=== PATIENT | female | born 1995 | race Hispanic/Latino ===

== ENCOUNTER 2017-09-02 21:04 | Emergency (ER) | payer OTHER ==
[2017-09-02 21:06] VITALS: BMI 37.7
[2017-09-02 21:14] VITALS: O2SAT 100
[2017-09-02] MEDS ORDERED: Sodium Chloride 0.9% 1,000 ML IV STA (21:26)
--- NOTE | 2017-09-02 21:37 | ED PDOC ---
Arrival/HPI - General Chief Complaint: Flu-like Symptoms Time Seen by Provider: 09/02/17 21:26 Historian: Patient - History of Present Illness Narrative History of Present Illness (Text): 09/02/17 21:36 A 22 year old female, who denies any past medical history, presents to the emergency department complaining of shortness of breath, fever, chills and body aches for the past two days. Patient reports fever two days ago, currently resolved. Reports she saw Dr. Carrington, who prescribed Ibuprofen and went to urgent care two days ago, negative for flu. Reports to taking Motrin. Patient denies any sick contacts or recent travels. Denies any history of asthma. Reports diarrhea but denies any other complaints at this time. Time/Duration: Other (2 days) Symptom Onset: Sudden Symptom Course: Unchanged Activities at Onset: Rest Context: Home Past Medical History - Provider Review Nursing Documentation Reviewed: Yes - Infectious Disease Hx of Infectious Diseases: None - Cardiac Hx Pacemaker: No - Neurological Hx Paralysis: No Hx Seizures: No - HEENT Hx Difficulty Chewing: No - Hematological/Oncological Hx Blood Transfusions: No Hx Blood Transfusion Reaction: No - Musculoskeletal/Rheumatological Hx Musculoskeletal Disorders: No - Psychiatric Hx Emotional Abuse: No Hx Physical Abuse: No Hx Substance Use: No - Anesthesia Hx Anesthesia: No Hx Anesthesia Reactions: No - Suicidal Assessment Feels Threatened In Home Enviroment: No Family/Social History - Physician Review Nursing Documentation Reviewed: Yes Family/Social History: No Known Family HX Smoking Status: Never Smoked Hx Alcohol Use: No Hx Substance Use: No Allergies/Home Meds Allergies/Adverse Reactions: Allergies No Known Allergies Allergy (Verified 09/02/17 21:12) Review of Systems - Physician Review All systems were reviewed & negative as marked: Yes - Review of Systems Gastrointestinal: absent: Vomiting Neurological: absent: Headache Physical Exam - Physical Exam Narrative Physical Exam (Text): 09/02/17 21:35 Constitutional: No acute distress. Head: Normocephalic. Atraumatic. Eyes: PERRL. ENT: Moist mucous membranes. Neck: Supple. Cardiovascular: Tachycardic rate. Chest: No tenderness. Respiratory: Clear to auscultation bilaterally. GI: Soft. Nontender. Nondistended. Back: No CVA tenderness. Musculoskeletal: No tenderness or swelling of extremities. Skin: No rash. Neurologic: Alert, no focal deficit. Vital Signs Reviewed: Yes Vital Signs Temp Pulse Resp BP Pulse Ox 09/02/17 22:27 98.9 F 90 18 128/73 100 09/02/17 21:12 98.6 F 108 H 16 127/86 100 Medical Decision Making ED Course and Treatment: 09/02/17 21:34 Impression: A 22 year old female with shortness of breath, chills, fever, body aches. Plan: -- chest xray -- labs -- Urinalysis -- IV fluids, Tamiflu, Toradol -- Reassess and disposition Progress Notes: CXR no consolidation. UA shows elevated spec gravity and ketones. Patient with no UTI symptoms. HR normalized. Patient hydrated, discharged home, continue ibuprofen, tamiflu, urine culture sent, return to ED for worsening pain, dyspnea, vomiting, or any other problem. - Lab Interpretations Lab Results: Lab Results 09/02/17 21:37: Urine Color Yellow, Urine Appearance Sl cloudy, Urine pH 6.0, Ur Specific [place] >= 1.030, Urine Protein 100 H, Urine Glucose (UA) Negative, Urine Ketones Trace H, Urine Blood Trace-intact H, Urine Nitrate Negative, Urine Bilirubin Small H, Urine Urobilinogen 0.2, Ur Leukocyte Esterase Moderate H, Urine RBC 1 - 3, Urine WBC 5 - 10, Ur Epithelial Cells 6 - 8, Amorphous Sediment Few, Urine Bacteria Few, Urine HCG, Qual Negative I have reviewed the lab results: Yes - RAD Interpretation Radiology Orders: 09/02/17 21:27 CHEST PORTABLE [RAD] Stat - Medication Orders Current Medication Orders: Discontinued Medications Sodium Chloride (Sodium Chloride 0.9%) 1,000 mls @ 999 mls/hr IV .Q1H1M STA Stop: 09/02/17 22:26 Last Admin: 09/02/17 21:47 Dose: 999 mls/hr eMAR Start Stop Document 09/02/17 21:47 AD (Rec: 09/02/17 21:47 AD [id number]) Intravenous Solution Start Date 09/02/17 Start Time 21:47 Ketorolac Tromethamine (Toradol) 30 mg IVP STAT STA Stop: 09/02/17 21:27 Last Admin: 09/02/17 21:47 Dose: 30 mg MAR Pain Assessment Document 09/02/17 21:47 AD (Rec: 09/02/17 21:47 AD [id number]) Pain Reassessment Is this a pain reassessment? No Description Intensity of Pain at present 7 IVP Administration Document 09/02/17 21:47 AD (Rec: 09/02/17 21:47 AD [id number]) Charges for Administration # of IVP Administrations 1 Oseltamivir Phosphate (Tamiflu Cap) 75 mg PO STAT STA PRN Reason: Protocol Stop: 09/02/17 21:27 Last Admin: 09/02/17 21:47 Dose: 75 mg - Scribe Statement The provider has reviewed the documentation as recorded by the [place] Provider Scribe Attestation: All medical record entries made by the [place] were at my direction and personally dictated by me. I have reviewed the chart and agree that the record accurately reflects my personal performance of the history, physical exam, medical decision making, and the department course for this patient. I have also personally directed, reviewed, and agree with the discharge instructions and disposition. Disposition/Present on Arrival - Present on Arrival Any Indicators Present on Arrival: No History of DVT/PE: No History of Uncontrolled Diabetes: No Urinary Catheter: No History of Decub. Ulcer: No History Surgical Site Infection Following: None - Disposition Have Diagnosis and Disposition been Completed?: Yes Diagnosis: Dehydration Disposition: HOME/ ROUTINE Disposition Time: 22:39 Patient Plan: Discharge Patient Problems: Current Active Problems Problem Status Onset Dehydration Acute Condition: STABLE Discharge Instructions (ExitCare): Dehydration (ED) Prescriptions: Oseltamivir Phosphate [Tamiflu] 75 mg PO BID #9 capsule Referrals: Jorge Luis Almanzar MD [Primary Care Provider] - Follow up with primary Forms: [employer] (Bel[place]ian)
[2017-09-02 21:53] LABS: URINE BILIRUBIN SMALL (NEGATIVE); URINE BLOOD TRACE-INTACT (NEGATIVE); URINE GLUCOSE (UA) NEGATIVE (NEGATIVE); URINE LEUKOCYTE ESTERASE MODERATE Leu/uL (NEGATIVE); URINE NITRATE NEGATIVE (NEGATIVE); URINE PROTEIN 100 mg/dL (<30 mg/dL); URINE UROBILINOGEN 0.2 E.U./dL (<1 E.U./dL)
[2017-09-02 22:19] LABS: URINE APPEARANCE SL CLOUDY (CLEAR); URINE COLOR YELLOW (YELLOW)
[2017-09-02 22:21] LABS: URINE AMORPHOUS SEDIMENT FEW; URINE BACTERIA FEW (NEG)
[2017-09-02 22:22] LABS: HCG,QUALITATIVE URINE NEGATIVE (NEGATIVE)
[2017-09-02 22:31] VITALS: BP 128/73; PULSE 90; RESP 18; TEMP 98.9
--- NOTE | 2017-09-03 08:29 | RAD ---
HISTORY: r/o PNA COMPARISON: No prior. FINDINGS: LUNGS: No active pulmonary disease. PLEURA: No significant pleural effusion identified, no pneumothorax apparent. CARDIOVASCULAR: Normal. OSSEOUS STRUCTURES: No significant abnormalities. VISUALIZED UPPER ABDOMEN: Normal. OTHER FINDINGS: None. IMPRESSION: No active disease.
== END 2017-09-02 23:28 | disposition home or self-care (01) ==
LOC: ED 21:04
DX: E86.0 Dehydration (principal)
CPT/HCPCS: 71045; 81001; 84703; 96374; 96375; 99284; J1885; J2405; J7040

== ENCOUNTER 2017-09-19 13:42 | Emergency (ER) | payer OTHER ==
[2017-09-19 14:41] VITALS: BMI 35.4
[2017-09-19 16:13] LABS: INFLUENZA A B NEGATIVE FOR FLU A/B (NEGATIVE)
--- NOTE | 2017-09-19 16:48 | ED PDOC ---
Arrival/HPI - General Chief Complaint: Cough, Cold, Congestion Time Seen by Provider: 09/19/17 15:10 Historian: Patient - History of Present Illness Narrative History of Present Illness (Text): 09/19/17 16:40 22yo female with no PMhx who present with complaint of cough, sore throat, fever x 3days. Patient states she saw her PMD and was given Zpack for lower respiratory infection. States the sore throat started yesterday. She have not take her Zpack yet. She denies dysphagia, chest pain, SOB, diaphoresis, sick contact, travel, any other complaint. Past Medical History - Provider Review Nursing Documentation Reviewed: Yes - Infectious Disease Hx of Infectious Diseases: None - Cardiac Hx Pacemaker: No - Neurological Hx Paralysis: No Hx Seizures: No - HEENT Hx Difficulty Chewing: No - Hematological/Oncological Hx Blood Transfusions: No Hx Blood Transfusion Reaction: No - Musculoskeletal/Rheumatological Hx Musculoskeletal Disorders: No - Psychiatric Hx Emotional Abuse: No Hx Physical Abuse: No Hx Substance Use: No - Anesthesia Hx Anesthesia: No Hx Anesthesia Reactions: No - Suicidal Assessment Feels Threatened In Home Enviroment: No Family/Social History - Physician Review Nursing Documentation Reviewed: Yes Family/Social History: Unknown Family HX Smoking Status: Never Smoked Hx Alcohol Use: No Hx Substance Use: No Allergies/Home Meds Allergies/Adverse Reactions: Allergies No Known Allergies Allergy (Verified 09/19/17 14:41) Review of Systems - Physician Review All systems were reviewed & negative as marked: Yes - Review of Systems Constitutional: Normal Eyes: Normal ENT: Sore Throat Respiratory: Cough. absent: SOB, Sputum, Wheezing Cardiovascular: Normal Gastrointestinal: Normal Genitourinary Female: Normal Musculoskeletal: Normal Skin: Normal Neurological: Normal Endocrine: Normal Hemo/Lymphatic: Normal Psychiatric: Normal Physical Exam Vital Signs Reviewed: Yes Vital Signs Temp Pulse Resp BP Pulse Ox 09/19/17 16:00 98 F 80 18 131/80 98 09/19/17 14:37 98.9 F 82 16 138/84 100 Temperature: Afebrile Blood Pressure: Normal Pulse: Regular Respiratory Rate: Normal Appearance: Positive for: Well-Appearing, Non-Toxic, Comfortable Pain Distress: None Mental Status: Positive for: Alert and Oriented X 3 - Systems Exam Head: Present: Atraumatic, Normocephalic Pupils: Present: PERRL Extroacular Muscles: Present: EOMI Conjunctiva: Present: Normal Mouth: Present: Moist Mucous Membranes Pharnyx: Present: Normal. No: ERYTHEMA, EXUDATE, TONSILS ENLARGED, Peritonsilar Swelling, Uvular Deviation, Muffled/Hoarse Voice, Strider Neck: Present: Normal Range of Motion Respiratory/Chest: Present: Clear to Auscultation, Good Air Exchange. No: Respiratory Distress, Accessory Muscle Use Cardiovascular: Present: Regular Rate and Rhythm, Normal S1, S2. No: Murmurs Abdomen: Present: Normal Bowel Sounds. No: Tenderness, Distention, Peritoneal Signs Back: Present: Normal Inspection Upper Extremity: Present: Normal Inspection. No: Cyanosis, Edema Lower Extremity: Present: Normal Inspection. No: Edema Neurological: Present: GCS=15, CN II-XII Intact, Speech Normal Skin: Present: Warm, Dry, Normal Color. No: Rashes Psychiatric: Present: Alert, Oriented x 3, Normal Insight, Normal Concentration Medical Decision Making ED Course and Treatment: 09/20/17 00:26 Rapid strep/flu was negative. Pt was hemodynamically stable in ED. She was already given Zpack by her PMD. She was DC home and instructed to take the medication as was directed. - Lab Interpretations Lab Results: Lab Results 09/19/17 15:17: Influenza Typ A,B (EIA) Negative for flu a/b, Grp A Beta Strep Ag Negative - Medication Orders Current Medication Orders: Discontinued Medications Lidocaine HCl (Lidocaine 2% Viscous) 15 ml PO ONCE STA Stop: 09/19/17 16:50 Last Admin: 09/19/17 17:08 Dose: 15 ml Disposition/Present on Arrival - Present on Arrival Any Indicators Present on Arrival: No History of DVT/PE: No History of Uncontrolled Diabetes: No Urinary Catheter: No History of Decub. Ulcer: No History Surgical Site Infection Following: None - Disposition Have Diagnosis and Disposition been Completed?: Yes Diagnosis: Sore throat, URI, acute Disposition: HOME/ ROUTINE Disposition Time: 16:50 Patient Plan: Discharge Condition: STABLE Discharge Instructions (ExitCare): Sore Throat, Adult (DC), Viral Upper Respiratory Infection, Adult (DC) Additional Instructions: Follow up with your Doctor Return to Ed for any new or worsening symptoms Referrals: PCP,NO [Primary Care Provider] - Follow up with primary [facility] [Outside] - Follow up with primary Forms: [employer] ([place]an)
[2017-09-19 17:13] VITALS: BP 131/80; PULSE 80; RESP 18; TEMP 98; O2SAT 98
== END 2017-09-19 17:16 | disposition home or self-care (01) ==
LOC: ED 13:42
DX: J02.9 Acute pharyngitis, unspecified (principal)

== ENCOUNTER 2018-03-20 09:58 | Emergency (ER) | payer OTHER ==
[2018-03-20 09:58] VITALS: BMI 35.4
--- NOTE | 2018-03-20 10:04 | ED PDOC ---
Arrival/HPI - General Time Seen by Provider: 03/20/18 10:03 Historian: Patient - History of Present Illness Narrative History of Present Illness (Text): 03/20/18 10:04 23 year old female, no significant pmh, nkda, complaining of rt. sided back pain x 2 days with no fall or trauma. Aching pain, aggravated by movement, non- radiating, no fever or chills, no nausea or vomiting, no abdominal pain, not associated with eating, admits working in [employer] and standing long hours, no urinary symptoms, no flank pain, no other medical or psychological complaints. Past Medical History - Provider Review Nursing Documentation Reviewed: Yes - Infectious Disease Hx of Infectious Diseases: None - Cardiac Hx Pacemaker: No - Neurological Hx Paralysis: No Hx Seizures: No - HEENT Hx Difficulty Chewing: No - Hematological/Oncological Hx Blood Transfusions: No Hx Blood Transfusion Reaction: No - Musculoskeletal/Rheumatological Hx Musculoskeletal Disorders: No - Psychiatric Hx Emotional Abuse: No Hx Physical Abuse: No Hx Substance Use: No - Anesthesia Hx Anesthesia: No Hx Anesthesia Reactions: No - Suicidal Assessment Feels Threatened In Home Enviroment: No Family/Social History - Physician Review Nursing Documentation Reviewed: Yes Family/Social History: Unknown Family HX Smoking Status: Never Smoked Hx Alcohol Use: No Hx Substance Use: No Allergies/Home Meds Allergies/Adverse Reactions: Allergies No Known Allergies Allergy (Verified 03/20/18 10:08) Home Medications: Home Meds Medication Instructions Recorded Confirmed Norethindrone-E.estradiol-Iron [Lo 1 tab PO DAILY 03/20/18 03/20/18 Loestrin Fe 1-10 Tablet] Review of Systems - Review of Systems Constitutional: absent: Fatigue Eyes: absent: Vision Changes ENT: absent: Hearing Changes Respiratory: absent: SOB, Cough Cardiovascular: absent: Chest Pain Gastrointestinal: absent: Abdominal Pain, Nausea, Vomiting Musculoskeletal: Back Pain. absent: Arthralgias Skin: absent: Rash, Pruritis, Skin Lesions Neurological: absent: Headache, Dizziness Psychiatric: absent: Anxiety, Depression, Suicidal Ideation Physical Exam Vital Signs Reviewed: Yes Vital Signs Temp Pulse Resp BP Pulse Ox 03/20/18 10:09 98.6 F 80 16 144/88 99 Temperature: Afebrile Blood Pressure: Normal Pulse: Regular Respiratory Rate: Normal Appearance: Positive for: Well-Appearing, Non-Toxic, Comfortable Pain Distress: Moderate Mental Status: Positive for: Alert and Oriented X 3 - Systems Exam Head: Present: Atraumatic, Normocephalic Pupils: Present: PERRL Extroacular Muscles: Present: EOMI Conjunctiva: Present: Normal Mouth: Present: Moist Mucous Membranes Neck: Present: Normal Range of Motion Respiratory/Chest: Present: Clear to Auscultation, Good Air Exchange. No: Respiratory Distress, Accessory Muscle Use Cardiovascular: Present: Regular Rate and Rhythm, Normal S1, S2. No: Murmurs Abdomen: No: Tenderness, Distention, Peritoneal Signs Back: Present: Normal Inspection, Other (Thoracic spine: +ttp on the rt. paraspinal muscle region, pain is 100 % reproducible by rt. lateral movement, no saddling gait, no midline tenderness or setp off from cervical to LS spine, motor 5/5. ). No: CVA Tenderness, Midline Tenderness, Pain with Leg Raise, Decubitus Ulcer Upper Extremity: Present: Normal Inspection. No: Cyanosis, Edema Lower Extremity: Present: Normal Inspection. No: Edema Neurological: Present: GCS=15, CN II-XII Intact, Speech Normal, Motor Func Grossly Intact, Gait Normal, Memory Normal Skin: Present: Warm, Dry, Normal Color. No: Rashes Psychiatric: Present: Alert, Oriented x 3, Normal Insight, Normal Concentration Medical Decision Making ED Course and Treatment: 03/20/18 10:28 Differential: muscular strain vs. UTI vs. -Toradol IM -Urinalysis -Observe and reassess 03/20/18 11:07 -Urine hcg is negative -Urinalysis show +yeast (diflucan po ordered), +wbc and +leukocyte esterase -Pt. feels much better, moving around with much less pain, request to be discharged home. -All labs discussed with the patient and she's awared of follow up with her own pmd. -Discharge home with naproxen, flexeril, keflex, follow up with your own pmd within 2 days, return to the ER for any new or worsening signs or symptoms. - Lab Interpretations Lab Results: Lab Results 03/20/18 10:25: Urine Color Yellow, Urine Appearance Clear, Urine pH 6.0, Ur Specific [place] >= 1.030, Urine Protein 30 H, Urine Glucose (UA) Negative, Urine Ketones Trace H, Urine Blood Negative, Urine Nitrate Negative, Urine Bilirubin Negative, Urine Urobilinogen 0.2, Ur Leukocyte Esterase Trace H, Urine RBC 0 - 2, Urine WBC 5 - 10, Ur Epithelial Cells 4 - 5, Urine Bacteria Many, Urine Other Uyeast I have reviewed the lab results: Yes - Medication Orders Current Medication Orders: Discontinued Medications Ketorolac Tromethamine (Toradol) 60 mg IM STAT STA Stop: 03/20/18 10:24 Last Admin: 03/20/18 10:33 Dose: 60 mg MAR Pain Assessment Document 03/20/18 10:33 GMI (Rec: 03/20/18 10:33 GMI [id number]) Pain Reassessment Is this a pain reassessment? Yes Sleep Is patient sleeping during reassessment? 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 Disposition/Present on Arrival - Present on Arrival Any Indicators Present on Arrival: No History of DVT/PE: No History of Uncontrolled Diabetes: No Urinary Catheter: No History of Decub. Ulcer: No History Surgical Site Infection Following: None - Disposition Have Diagnosis and Disposition been Completed?: Yes Diagnosis: UTI (urinary tract infection), Myalgia Disposition: HOME/ ROUTINE Disposition Time: 11:09 Patient Plan: Discharge Patient Problems: Current Active Problems Problem Status Onset Myalgia Acute UTI (urinary tract infection) Acute Condition: IMPROVED Additional Instructions: -Discharge home with naproxen, flexeril, keflex, follow up with your own pmd within 2 days, return to the ER for any new or worsening signs or symptoms. Prescriptions: Cephalexin [Keflex] 500 mg PO TID #21 capsule Cyclobenzaprine [Cyclobenzaprine HCl] 10 mg PO TID PRN #21 tab PRN Reason: Other Naproxen 500 mg PO BID PRN #20 tablet PRN Reason: Other Referrals: [facility] [Outside] - Follow up with primary Forms: WORK NOTE
[2018-03-20 10:11] VITALS: O2SAT 99
[2018-03-20 10:48] LABS: URINE APPEARANCE CLEAR (CLEAR); URINE BILIRUBIN NEGATIVE (NEGATIVE); URINE BLOOD NEGATIVE (NEGATIVE); URINE COLOR YELLOW (YELLOW); URINE GLUCOSE (UA) NEGATIVE (NEGATIVE); URINE LEUKOCYTE ESTERASE TRACE Leu/uL (NEGATIVE); URINE PROTEIN 30 mg/dL (<30 mg/dL); URINE UROBILINOGEN 0.2 E.U./dL (<1 E.U./dL)
[2018-03-20 11:01] LABS: URINE BACTERIA MANY (NEG); URINE RBC 0 - 2 /hpf (0-2)
[2018-03-20 11:42] VITALS: BP 125/83; PULSE 73; RESP 19; TEMP 98
== END 2018-03-20 11:42 | disposition home or self-care (01) ==
LOC: ED 09:58
DX: N39.0 Urinary tract infection, site not specified (principal); M79.1 Myalgia
CPT/HCPCS: 81001; 87086; 96372; 99282; J1885